=== PATIENT | male | born 1985 | race African-American/Black ===

== ENCOUNTER 2019-03-18 19:03 | Emergency (ER) | payer SELFPAY ==
[2019-03-18] MEDS ORDERED: diPHENhydraMINE IV* 50 MG/ML 1 ml VIAL (BENADRYL) IM ONE (19:06)
[2019-03-18] MEDS ORDERED: LORazepam INJ* 2 MG/ML 1 ML VIAL IM ONE (19:06)
[2019-03-18] MEDS ORDERED: Haloperidol INJ IV/IM* 5 MG/ML AMP IM ONE (19:06)
[2019-03-18] MEDS ORDERED: Naproxen TAB* 250 MG PO ONE (22:50)
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
[2019-03-19] MEDS ORDERED: Tetan/Diph/Pertus SYR(Tdap)* 0.5 ML SYR(BOOSTRIX) use SYR IM ONE (01:44)
[2019-03-19 02:00] VITALS: BP 101/57
== END 2019-03-19 02:12 | disposition home or self-care (01) ==
LOC: ED 19:03
DX: S00.12XA Contusion of left eyelid and periocular area, initial encounter (principal); S69.91XA Unspecified injury of right wrist, hand and finger(s), initial encounter; T14.8XXA Other injury of unspecified body region, initial encounter; Z23 Encounter for immunization; Y04.2XXA Assault by strike against or bumped into by another person, initial encounter
CPT/HCPCS: 70486; 90471; 90715; 96372; 99283; A9270-GY